=== PATIENT | male | born 1950 | race African-American/Black ===

== ENCOUNTER 2017-08-13 19:50 | Emergency (ER) | payer MEDICAID ==
[2017-08-13] MEDS ORDERED: Sulfamethox/Trimethoprim DS 800/160* TAB PO ONE (20:51)
--- NOTE | 2017-08-13 20:52 | UC ---
Skin Complaint HPI - HPI Summary HPI Summary: Complains of redness and swelling to right side face lateral to nose and inferior to right eye 2 days. Denies fever, N/V,. Drainage, toothache, purulent drainage in mouth, sore throat, ear pain, change in vision. History of abscess. - History of Current Complaint Chief Complaint: EDRashSkinAbscess Time Seen by Provider: 08/13/17 20:02 Stated Complaint: ABSCESS Hx Obtained From: Patient Onset/Duration: Gradual Onset Onset Severity: Mild Current Severity: Moderate Pain Intensity: 6 Pain Scale Used: 0-10 Numeric Location: Discrete Aggravating Factor(s): Nothing - Allergy/Home Medications Allergies/Adverse Reactions: Allergies Allergy/AdvReac Type Severity Reaction Status Date / Time No Known Allergies Allergy Verified 08/13/17 19:55 Review of Systems Constitutional: Negative Skin: Other Eyes: Negative ENT: Other Respiratory: Negative Cardiovascular: Negative Gastrointestinal: Negative Genitourinary: Negative Motor: Negative Neurovascular: Negative Musculoskeletal: Negative Neurological: Negative Psychological: Negative All Other Systems Reviewed And Are Negative: Yes PMH/Surg Hx/FS Hx/Imm Hx Previously Healthy: Yes Cancer History: Prostate Cancer - Surgical History Surgical History: None - Social History Alcohol Use: Rare Substance Use Type: None Smoking Status (MU): Never Smoked Tobacco Physical Exam - Summary Physical Exam Summary: 4 cm x 4 cm area of erythema, redness, swelling on right side face lateral to and involving nose, inferior to the eye. Does not involve periorbital tissue. EOMs intact. No evidence of dental or oral pharyngeal abscess. Triage Information Reviewed: Yes Appearance: Well-Appearing Vital Signs: Initial Vital Signs Temp 97.1 F 08/13/17 19:52 Pulse 91 08/13/17 19:52 Resp 18 08/13/17 19:52 BP 130/97 08/13/17 19:52 Pulse Ox 95 08/13/17 19:52 Vital Signs Reviewed: Yes Eye Exam: Normal ENT Exam: Normal Dental: Positive: Gross Decay/Caries @ Neck exam: Normal Respiratory Exam: Normal Cardiovascular Exam: Normal Abdominal Exam: Normal Musculoskeletal Exam: Normal Neurological Exam: Normal Psychological Exam: Normal Skin Exam: Normal Course/Dx - Course Course Of Treatment: Complains of redness and swelling to right side face lateral to nose and inferior to right eye 2 days. Denies fever, N/V,. Drainage, toothache, purulent drainage in mouth, sore throat, ear pain, change in vision. History of abscess.4 cm x 4 cm area of erythema, redness, swelling on right side face lateral to and involving nose, inferior to the eye. Does not involve periorbital tissue. EOMs intact. No evidence of dental or oral pharyngeal abscess. Started on Bactrim here in the ED. Rx for same. - Diagnoses Provider Diagnoses: Abscess Discharge - Sign-Out/Discharge Documenting (check all that apply): Discharge/Admit/Transfer - Discharge Plan Condition: Stable Disposition: HOME Prescriptions: Sulfamethox/Trimethoprim DS* [Bactrim DS 800/160 TAB*] 1 tab PO BID 10 Days #20 tab Patient Education Materials: Abscess (ED), Abscess Follow-up (ED) Referrals: Tay Lozano DO [Primary Care Provider] - Additional Instructions: Take antibiotics as directed. Use warm compresses or warm running water to help drain abscess. Return to the ED for any new or worsening symptoms - Billing Disposition and Condition Condition: STABLE Disposition: Home
[2017-08-13 21:07] VITALS: BP 148/84
== END 2017-08-13 21:06 | disposition home or self-care (01) ==
LOC: ED 19:50
DX: L02.01 Cutaneous abscess of face (principal); K02.9 Dental caries, unspecified; Z85.46 Personal history of malignant neoplasm of prostate
CPT/HCPCS: 99283; A9270-GY

== ENCOUNTER 2017-09-19 16:16 | Emergency (ER) | payer MEDICARE, MEDICAID ==
--- NOTE | 2017-09-19 20:39 | ED ---
Skin Complaint - HPI Summary HPI Summary: Patient planes of right side facial swelling lateral to nose and inferior to the right eye starting today. History of abscess in same area. Denies pain, purulent discharge, vision change, GOLDBERG SOB, trauma, fever, dysphasia, ear pain, sore throat, cough, purulent discharge, GOLDBERG, N/V, abdominal pain. Denies medical history. - History of Current Complaint Chief Complaint: EDDentalPain Time Seen by Provider: 09/19/17 20:01 Stated Complaint: RT EYE SWOLLEN Hx Obtained From: Patient Onset/Duration: Started Hours Ago Timing: Constant Current Severity: None Pain Intensity: 0 Pain Scale Used: 0-10 Numeric Alleviating Symptom(s): Nothing Associated Signs & Symptoms: Negative - Allergy/Home Medications Allergies/Adverse Reactions: Allergies Allergy/AdvReac Type Severity Reaction Status Date / Time No Known Allergies Allergy Verified 08/13/17 19:55 PMH/Surg Hx/FS Hx/Imm Hx Endocrine/Hematology History: Denies: Hx Diabetes Cardiovascular History: Denies: Hx Hypertension History: Denies: Hx Dialysis, Hx Renal Disease - Cancer History Cancer Type, Location and Year: [place] Infectious Disease History: No Infectious Disease History: Denies: Traveled Outside the [place] in Last 30 Days - Social History Alcohol Use: None Substance Use Type: Reports: None Smoking Status (MU): Never Smoked Tobacco Review of Systems Constitutional: Negative Eyes: Negative ENT: Negative Cardiovascular: Negative Respiratory: Negative Gastrointestinal: Negative Genitourinary: Negative Musculoskeletal: Negative Skin: Other Neurological: Negative Psychological: Normal All Other Systems Reviewed And Are Negative: Yes Physical Exam - Summary Physical Exam Summary: Swelling, redness, induration lateral to right nose, inferior to right eye. No septal hematoma. EOMs intact. No evidence of purulent drainage. Nonfluctuant. No evidence of dental abscess or lesions. Triage Information Reviewed: Yes Vital Signs On Initial Exam: Initial Vitals Temp Pulse Resp BP Pulse Ox 98.0 F 96 16 122/82 97 09/19/17 16:30 09/19/17 16:30 09/19/17 16:30 09/19/17 16:30 09/19/17 16:30 Vital Signs Reviewed: Yes Appearance: Positive: Well-Appearing Skin: Positive: Warm Head/Face: Positive: Normal Head/Face Inspection Eyes: Positive: Normal ENT: Positive: Normal ENT inspection Neck: Positive: Supple Respiratory/Lung Sounds: Positive: Clear to Auscultation Cardiovascular: Positive: Normal Abdomen Description: Positive: Nontender Musculoskeletal: Positive: Normal Neurological: Positive: Normal Psychiatric: Positive: Normal AVPU Assessment: Alert - Keagan Coma Scale Best Eye Response: 4 - Spontaneous Best Motor Response: 6 - Obeys Commands Best Verbal Response: 5 - Oriented Coma Scale Total: 15 Procedures - Incision and Drainage 1 Site: right side face Anesthesia: Local, Lidocaine Instrument(s): Scalpel Diagnostics - Vital Signs Vital Signs Temp Pulse Resp BP Pulse Ox 09/19/17 17:54 97.7 F 86 18 115/79 09/19/17 16:30 98.0 F 96 16 122/82 97 - Laboratory Lab Statement: Any lab studies that have been ordered have been reviewed, and results considered in the medical decision making process. Course/Dx - Course Course Of Treatment: Patient planes of right side facial swelling lateral to nose and inferior to the right eye starting today. History of abscess in same area. Denies pain, purulent discharge, vision change, GOLDBERG SOB, trauma, fever, dysphasia, ear pain, sore throat, cough, purulent discharge, G[place]G, N/V, abdominal pain. Denies medical history. Swelling, redness, induration lateral to right nose, inferior to right eye. No septal hematoma. EOMs intact. No evidence of purulent drainage. Nonfluctuant. No evidence of dental abscess or lesions. I& D performed without purulent drainage. Patient started here on Bactrim 1. Rx for Bactrim. - Diagnoses Provider Diagnoses: Abscess Discharge - Sign-Out/Discharge Documenting (check all that apply): Patient Departure - Discharge Plan Condition: Stable Disposition: HOME Prescriptions: Sulfamethox/Trimethoprim DS* [Bactrim DS 800/160 TAB*] 1 tab PO BID 10 Days #20 tab Patient Education Materials: Abscess (ED) Referrals: Tay Lozano DO [Primary Care Provider] - Gwyn Link MD [Medical Doctor] - Additional Instructions: Take antibiotics as directed. Use warm compresses to help drain opening. Follow-up with research scientist Dr. Link. Return to the ED for any new or worsening symptoms - Billing Disposition and Condition Condition: STABLE Disposition: Home
[2017-09-19] MEDS ORDERED: Sulfamethox/Trimethoprim DS 800/160* TAB PO ONE (20:41)
[2017-09-19 21:07] VITALS: BP 137/95
== END 2017-09-19 21:05 | disposition home or self-care (01) ==
LOC: ED 16:16
DX: L02.01 Cutaneous abscess of face (principal)
CPT/HCPCS: 10060; 99282; A9270-GY

== ENCOUNTER 2017-09-23 11:47 | Emergency (ER) | payer MEDICARE, MEDICAID ==
[2017-09-23] MEDS ORDERED: Lidocaine 1%* 5 ML VIAL INJ ONE (12:31)
[2017-09-23] MEDS ORDERED: Lidocaine 1%* 5 ML VIAL ONE (12:32)
--- NOTE | 2017-09-23 12:38 | ED ---
Skin Complaint - HPI Summary HPI Summary: This is abbey Dodge documenting for attending Matt Fisher MD. This patient is a 67 year old M presenting to [facility] with a chief complaint of worsening abscess on his right cheek that was drained on Friday. Pt came in for the same issue 4 days ago where the abscess was drained and he was given antibiotics. The patient rates the pain 3/10 in severity. Pt reports that he would like it to be drained again. Pt had a similar episode a month ago in a different location. NKDA. - History of Current Complaint Chief Complaint: EDRashSkinAbscess Time Seen by Provider: 09/23/17 12:11 Stated Complaint: ABSCESS ON FACE Hx Obtained From: Patient Onset/Duration: Started Days Ago - Friday Skin Exposure Onset/Duration: Days Ago Timing: Constant Onset Severity: Moderate Current Severity: Moderate Pain Intensity: 3 Pain Scale Used: 0-10 Numeric Skin Location: Discrete - right cheek, Face - Allergy/Home Medications Allergies/Adverse Reactions: Allergies Allergy/AdvReac Type Severity Reaction Status Date / Time No Known Allergies Allergy Verified 08/13/17 19:55 PMH/Surg Hx/FS Hx/Imm Hx Endocrine/Hematology History: Denies: Hx Diabetes Cardiovascular History: Denies: Hx Hypertension History: Denies: Hx Dialysis, Hx Renal Disease EENT History: Denies: Hx Deafness - Cancer History Cancer Type, Location and Year: [place] Infectious Disease History: No Infectious Disease History: Denies: Traveled Outside the [place] in Last 30 Days - Family History Known Family History: Positive: Other - skin abscess - Social History Alcohol Use: None Substance Use Type: Reports: None Smoking Status (MU): Never Smoked Tobacco Review of Systems Negative: Fever Positive: Other - abscess right cheek All Other Systems Reviewed And Are Negative: Yes Physical Exam - Summary Physical Exam Summary: General: well-appearing, no pain distress Skin: warm, color reflects adequate perfusion, dry. Head: normal Eyes: EOMI, SHAHID ENT: Firm swelling over the right maxillary sinus. Severe dental decay. Neck: supple, nontender Respiratory: CTA, breath sounds present Cardiovascular: RRR Abdomen: soft, nontender Bowel: present Musculoskeletal: normal, strength/ROM intact Neurological: sensory/motor intact, A&O x3 Psychological: affect/mood appropriate Triage Information Reviewed: Yes Vital Signs On Initial Exam: Initial Vitals Temp Pulse Resp BP Pulse Ox 98 F 90 16 109/72 99 09/23/17 11:51 09/23/17 11:51 09/23/17 11:51 09/23/17 11:51 09/23/17 11:51 Vital Signs Reviewed: Yes Procedures - Incision and Drainage Right Cheek Site: Maxillary sinus Anesthesia: Lidocaine - 1% Packing: Gauze - 1/4 in, Drain - Betadine prep. Created an 8mm incision with a # 11 blade. A lot of pus came out. Diagnostics - Vital Signs Vital Signs Temp Pulse Resp BP Pulse Ox 09/23/17 11:51 98 F 90 16 109/72 99 - Laboratory Lab Statement: Any lab studies that have been ordered have been reviewed, and results considered in the medical decision making process. Course/Dx - Course Course Of Treatment: I AND D OF ABSCESS. CHANGE ABX TO CLINDAMYCIN. F/U PMD; RETURN TO ED IF WORSE. - Diagnoses Provider Diagnoses: Dental abscess Discharge - Sign-Out/Discharge Documenting (check all that apply): Patient Departure - Discharge Plan Condition: Stable Disposition: HOME Prescriptions: Clindamycin Cap(NF) [Clindamycin Cap 300 mg Cap(NF)] 300 mg PO Q6H #40 cap Patient Education Materials: Dental Abscess (ED) Referrals: Tay Lozano DO [Primary Care Provider] - Additional Instructions: FOLLOW UP WITH YOUR DOCTOR. GET RECHECKED FOR ANY WORSENING OF YOUR CONDITION; PAIN, FEVER, INCREASED SWELLING, YOU FEEL ILL OR QUESTIONS OR CONCERNS. - Billing Disposition and Condition Condition: STABLE Disposition: Home
[2017-09-23] MEDS ORDERED: Clindamycin CAP* 150 MG PO ONE (13:06)
[2017-09-23 13:19] VITALS: BP 133/101
--- NOTE | 2017-09-26 06:44 | PN ---
Progress Note - Progress Note Date of Service: 09/23/17 Note: Patient arrives with facial abscess on 09/23/17 I&D performed withfinal culture: Streptococcus anginosus Patient was placed on clindamycin Patient returned on 09/25/17 for removal of packing Patient reports improvement Will continue on clindamycin We will also await sensitivities at this time.
--- NOTE | 2017-09-28 07:27 | ED ---
Progress - Progress Note Progress Note: Patient's final facial wound culture revealed Streptococcus Anginosus. Patient was initially started on Bactrim and this was switched to clindamycin. Based on sensitivities today, clindamycin is resistant to treating this organism. Spoke with patient who reports he's feeling much better with ongoing dressing changes after I&D on 19 September. He was seen yesterday and final packing was removed. Provider's note indicates he does not need any further antibiotics. Discussed the case with patient and encouraged him to stop his clindamycin as this is not effective and may increase his risk for C. difficile. Did explain that if his symptoms seem to start to get worse as his wound heals he may mixing picker tender Keflex from the pharmacy as this antibiotic is effective against this organism. He will continue to touch base with his PCP as directed and return to the emergency department for danger signs and symptoms. Course/Dx - Course Course Of Treatment: I AND D OF ABSCESS. CHANGE ABX TO CLINDAMYCIN. F/U PMD; RETURN TO ED IF WORSE. - Diagnoses Provider Diagnoses: Dental abscess Discharge - Sign-Out/Discharge Documenting (check all that apply): Post-Discharge Follow Up - Discharge Plan Condition: Stable Disposition: HOME Patient Education Materials: Dental Abscess (ED) Referrals: Tay Lozano DO [Primary Care Provider] - Additional Instructions: FOLLOW UP WITH YOUR DOCTOR. GET RECHECKED FOR ANY WORSENING OF YOUR CONDITION; PAIN, FEVER, INCREASED SWELLING, YOU FEEL ILL OR QUESTIONS OR CONCERNS. - Billing Disposition and Condition Condition: STABLE Disposition: Home
== END 2017-09-23 13:18 | disposition home or self-care (01) ==
LOC: ED 11:47
DX: K04.7 Periapical abscess without sinus (principal); Z85.46 Personal history of malignant neoplasm of prostate; C61 Malignant neoplasm of prostate
CPT/HCPCS: 41800; 87070; 87077; 87186; 87205; 87640; 87641; 99282; A9270-GY

== ENCOUNTER 2017-09-25 11:18 | Emergency (ER) | payer MEDICARE, MEDICAID ==
[2017-09-25 11:32] VITALS: BP 116/72
--- NOTE | 2017-09-25 12:45 | ED ---
ED Suture/Wound Check - HPI Summary HPI Summary: Pt here w/ facial wound I&D recheck and packing change. No fevers or chills. Pain and swelling much better. - History Of Current Complaint Chief Complaint: EDGeneral Stated Complaint: NEEDS PACKING OUT Time Seen by Provider: 09/25/17 12:07 Hx Obtained From: Patient Pain Intensity: 0 - Allergies/Home Medications Allergies/Adverse Reactions: Allergies Allergy/AdvReac Type Severity Reaction Status Date / Time No Known Allergies Allergy Verified 09/25/17 11:32 Home Medications: Home Medications NK [No Home Medications Reported] 09/25/17 [History Confirmed 09/25/17] PMH/Surg Hx/FS Hx/Imm Hx Endocrine/Hematology History: Denies: Hx Diabetes Cardiovascular History: Denies: Hx Hypertension History: Denies: Hx Dialysis, Hx Renal Disease Sensory History: Denies: Hx Deafness - Cancer History Cancer Type, Location and Year: [place] Infectious Disease History: No Infectious Disease History: Denies: Traveled Outside the [place] in Last 30 Days - Family History Known Family History: Positive: Other - skin abscess - Social History Alcohol Use: None Substance Use Type: Reports: None Smoking Status (MU): Never Smoked Tobacco Physical Exam Vital Signs On Initial Exam: Initial Vitals Temp Pulse Resp BP Pulse Ox 97.6 F 60 16 116/72 99 09/25/17 11:25 09/25/17 11:25 09/25/17 11:25 09/25/17 11:25 09/25/17 11:25 Diagnostics - Vital Signs Vital Signs Temp Pulse Resp BP Pulse Ox 09/25/17 11:25 97.6 F 60 16 116/72 99 - Laboratory Lab Statement: Any lab studies that have been ordered have been reviewed, and results considered in the medical decision making process. Discharge - Sign-Out/Discharge Documenting (check all that apply): Patient Departure - Discharge Plan Condition: Stable Disposition: HOME Patient Education Materials: Incision and Drainage (ED) Referrals: Tay Lozano DO [Primary Care Provider] - Additional Instructions: Return to medical provider in 2 days for wound check, packing change. *If in the meantime you develop fever, chills, increased swelling or pain, return to ED - Billing Disposition and Condition Condition: STABLE Disposition: Home
== END 2017-09-25 12:55 | disposition home or self-care (01) ==
LOC: ED 11:18
DX: Z48.00 Encounter for change or removal of nonsurgical wound dressing (principal)
CPT/HCPCS: 99282

== ENCOUNTER 2017-09-27 10:29 | Emergency (ER) | payer MEDICARE, MEDICAID ==
[2017-09-27 12:10] VITALS: BP 142/87
--- NOTE | 2017-09-27 12:20 | ED ---
Skin Complaint - HPI Summary HPI Summary: Patient is a 67-year-old male presenting to the ED with a request for removal of packing to the right cheek. Packing was placed 6 days ago and rechecked 3 days ago and repacked. He endorses significant improvement in the amount of redness swelling and pain. He denies any symptoms at this time. He is afebrile on arrival and other vital signs are stable. - History of Current Complaint Chief Complaint: EDRashSkinAbscess Time Seen by Provider: 09/27/17 11:27 Stated Complaint: REMOVE WOUND PACKING Hx Obtained From: Patient Onset/Duration: Started Weeks Ago Timing: Constant Onset Severity: Mild Current Severity: None Pain Intensity: 0 Pain Scale Used: 0-10 Numeric Skin Location: Face Aggravating Symptom(s): Nothing Alleviating Symptom(s): Nothing Associated Signs & Symptoms: Negative - Allergy/Home Medications Allergies/Adverse Reactions: Allergies Allergy/AdvReac Type Severity Reaction Status Date / Time No Known Allergies Allergy Verified 09/27/17 10:34 PMH/Surg Hx/FS Hx/Imm Hx Previously Healthy: Yes Endocrine/Hematology History: Denies: Hx Diabetes Cardiovascular History: Denies: Hx Hypertension History: Denies: Hx Dialysis, Hx Renal Disease Sensory History: Denies: Hx Deafness - Cancer History Cancer Type, Location and Year: [place] - Immunization History Hx Pertussis Vaccination: No Immunizations Up to Date: Unable to Obtain/Confirm Infectious Disease History: No Infectious Disease History: Denies: Traveled Outside the [place] in Last 30 Days - Family History Known Family History: Positive: Other - skin abscess - Social History Occupation: Employed Full-time Lives: With Family Alcohol Use: None Hx Substance Use: No Substance Use Type: Reports: None Hx Tobacco Use: No Smoking Status (MU): Never Smoked Tobacco Review of Systems Constitutional: Negative Negative: Fever, Chills, Fatigue, Skin Diaphoresis Negative: Palpitations, Chest Pain Negative: Shortness Of Breath, Cough Genitourinary: Negative Positive: no symptoms reported, see HPI Negative: Arthralgia, Myalgia Negative: Headache, Weakness All Other Systems Reviewed And Are Negative: Yes Physical Exam Triage Information Reviewed: Yes Vital Signs On Initial Exam: Initial Vitals Temp Pulse Resp BP Pulse Ox 98.2 F 50 16 127/80 98 09/27/17 10:32 09/27/17 10:32 09/27/17 10:32 09/27/17 10:32 09/27/17 10:32 Vital Signs Reviewed: Yes Appearance: Positive: Well-Appearing, Well-Nourished Skin: Positive: Warm, Skin Color Reflects Adequate Perfusion, Other - small 2cm slightly raised area to the R cheek without signs of infection - iodoform gauze Eyes: Positive: Normal Neck: Positive: Supple, No Lymphadenopathy Respiratory/Lung Sounds: Positive: Clear to Auscultation, Breath Sounds Present Cardiovascular: Positive: RRR, Pulses are Symmetrical in both Upper and Lower Extremities Musculoskeletal: Positive: Normal, Strength/ROM Intact Neurological: Positive: Speech Normal Psychiatric: Positive: Normal, Affect/Mood Appropriate AVPU Assessment: Alert Diagnostics - Vital Signs Vital Signs Temp Pulse Resp BP Pulse Ox 09/27/17 12:08 97.9 F 79 16 142/87 98 09/27/17 10:32 98.2 F 50 16 127/80 98 - Laboratory Lab Statement: Any lab studies that have been ordered have been reviewed, and results considered in the medical decision making process. Course/Dx - Course Course Of Treatment: Patient arrives with a right cheek abscess requesting unpacking. Unpacking of the iodoform gauze measuring 0.5 cm with success. No drainage from the area. The area appears very clean and dry. No erythema or tenderness. He does not need a repacking or continuing of antibiotics. - Diagnoses Provider Diagnoses: Wound check, abscess Discharge - Sign-Out/Discharge Documenting (check all that apply): Patient Departure - Discharge Plan Condition: Stable Disposition: HOME Referrals: Tay Lozano DO [Primary Care Provider] - - Billing Disposition and Condition Condition: STABLE Disposition: Home
== END 2017-09-27 12:08 | disposition home or self-care (01) ==
LOC: ED 10:29
DX: L02.01 Cutaneous abscess of face (principal)
CPT/HCPCS: 99281